=== PATIENT | female | born 1960 | race Caucasian/White ===

== ENCOUNTER 2019-05-18 18:47 | Emergency (ER) | payer SELFPAY ==
[~2019-05-18] VITALS: Ht 165.1 cm; Wt 94.8 kg
[2019-05-18 19:39] LABS: BASOPHILS # (AUTO) 0.08 x10^3/uL (0-0.1); BASOPHILS % (AUTO) 1 % (0-1); EOSINOPHILS # (AUTO) 0.09 x10^3/uL (0-0.4); EOSINOPHILS % (AUTO) 1 % (1-7); LYMPHOCYTES # (AUTO) 2.22 x10^3/uL (1-3.4); LYMPHOCYTES % (AUTO) 26 % (22-44); MD NO; MEAN CORPUSCULAR HEMOGLOBIN 30.4 pg (27.0-34.8); MEAN CORPUSCULAR HGB CONC 33.2 g/dL (32.4-35.8); MEAN CORPUSCULAR VOLUME 91.5 fL (80-100); MEAN PLATELET VOLUME 8.5 fL (7.4-10.4); MONOCYTES # (AUTO) 0.56 x10^3/uL (0.2-0.8); MONOCYTES % (AUTO) 6 % (2-9); NEUTROPHILS # (AUTO) 5.78 x10^3/uL (1.8-6.8); NEUTROPHILS % (AUTO) 66 % (42-75); PLATELET COUNT 325 x10^3/uL (130-400); RED BLOOD COUNT 5.16 x10^6/uL (3.82-5.3); RED CELL DISTRIBUTION WIDTH 13.6 % (9.6-15.2)
[2019-05-18 19:50] LABS: ALBUMIN 3.8 g/dL (3.4-5.0); ANION GAP 9 mmol/L (5-15); CALCIUM 9.5 mg/dL (8.5-10.1); CHLORIDE 112 mmol/L (98-107)
--- NOTE | 2019-05-18 20:28 | NUR ---
Pt brought to room 22, c/o dizziness x 1-2 days, intermittent, "throat tightness", and "feeling that something is wrong", pt also reports inability to sleep r/t "anxiety". Vitals stable, palced on monitor, NSR. Pt is alert, oriented, speaks in full complete sentneces, at bedside. Pt denies pain, all other needs met at this time, waiting on results.
--- NOTE | 2019-05-18 21:10 | NUR ---
Pt out of room.
--- NOTE | 2019-05-18 21:38 | NUR ---
This rn to ct to assist w/ iv placement. Pt refused to allow anyone to attempt a peripheral iv w/o us implementation. this rn placed peripheral iv and pt tolerated placement well. Iv infuses saline flush appropriately and blood pull back. Ct w/ contrast to be accomplished.
[2019-05-18 21:53] LABS: TROPONIN I < 0.015 ng/mL (0.000-0.045)
[2019-05-18] MEDS ORDERED: OMNIPAQUE 350 MG/ML, 100ML BOTTLE ONE (22:00)
--- NOTE | 2019-05-18 22:04 | NUR ---
Pt back from imaging, vitals stable, wiating for results.
[2019-05-18 22:56] LABS: FREE T4 (FREE THYROXINE) 1.16 ng/dL (0.76-1.46)
--- NOTE | 2019-05-18 23:00 | NUR ---
Pt sitting up on bed, vitals stable, waiting on labs.
[2019-05-18 23:30] VITALS: BP 132/69
--- NOTE | 2019-05-18 23:32 | NUR ---
Pt stable for discharge to home, PIV removed, site asymptomatic, vitals stable, exitcare reviewed w/ pt, verbalizes undersstanding. Ambulates w/ steady gait to discharge desk.
== END 2019-05-18 23:34 | disposition home or self-care (01) ==
LOC: ED 23:19
DX: R51 Headache (principal); R42 Dizziness and giddiness; E04.9 Nontoxic goiter, unspecified
CPT/HCPCS: 36415; 70450; 70496; 70498; 80048; 82040; 84439; 84443; 84484; 85025; 93005; 99284; Q9967